=== PATIENT | male | born 1995 | race Caucasian/White ===

== ENCOUNTER 2021-06-12 18:44 | Emergency (ER) | payer OTHER ==
[~2021-06-12] VITALS: Ht 188 cm; Wt 117.9 kg
[2021-06-12 21:15] LABS: URINE BLOOD 1+ (Negative); URINE CLARITY CLEAR; URINE COLOR YELLOW; URINE GLUCOSE-RANDOM* NEGATIVE (Negative); URINE KETONES 2+ (Negative); URINE LEUKOCYTES-REFLEX NEGATIVE (Negative); URINE NITRITE-REFLEX NEGATIVE (Negative); URINE PROTEIN (DIPSTICK) NEGATIVE (Negative); URINE SPECIFIC GRAVITY >= 1.030 (1.005-1.035)
[2021-06-12 21:19] LABS: ICTOTEST (BILI CONFIRMATORY) Negative (Negative); URINE BILIRUBIN NEGATIVE (Negative)
[2021-06-12 21:29] LABS: AMP/METHAMP Negative (Negative); BARBITURATES Negative (Negative); BENZODIAZEPINES Negative (Negative); COCAINE Negative (Negative); METHADONE Negative (Negative); OPIATES Negative (Negative); PCP Negative (Negative)
[2021-06-12 21:36] LABS: CASTS None Seen /LPF (None Seen); SQUAMOUS 0-3 Few /LPF (0-3); URINE RBC 3-10 Few /HPF (NONE SEEN); URINE WBC-REFLEX 0-5 Rare /HPF (0-5)
[2021-06-12 21:37] LABS: AMORPHOUS URATES Few /LPF (None Seen)
[2021-06-12] MEDS ORDERED: ZOFRAN ODT4 MG PO (22:11)
[2021-06-12 22:15] VITALS: BP 132/70
--- NOTE | 2021-06-13 10:31 | EKG ---
[place] [address] [facility] [place] [address] ELECTROCARDIOGRAM REPORT Name: BALTA,JASON Room #: REG TATUM Florentino#: [id number] Admission: 06/12/21 Attend Phys: Discharge: Date of : [birth year] Report #: [id number] [facility] ED Test Date: 2021-06-12 Test Time: 20:09:13 Pat Name: JASON GIFFORD Department: Room: Gender: Lean Consultant: thalia : 1995 Requested By: Clarisa Granda Order Number: [id number] MD: Praveen Moura Measurements Intervals [place] Rate: 56 P: 44 DC: 148 QRS: 26 QRSD: 96 T: 18 QT: 445 QTc: 430 Interpretive Statements Incomplete analysis due to missing data in precordial lead(s) Sinus rhythm Missing lead(s): V1 No previous ECG available for comparison Electronically Signed On 06-13-2021 10:31:27 POWDER EXPERT by Praveen Moura [email or web address] <ELECTRONICALLY SIGNED> By: Praveen Moura MD, [facility] 06/13/21 1031 08 08 Praveen Moura MD, FACC /EPI
--- NOTE | 2021-06-14 07:50 | EKG ---
[place] [address] [facility] [place] [address] ELECTROCARDIOGRAM REPORT Name: BALTA,JASON Room #: DEP Mishel#: [id number] Admission: 06/12/21 Attend Phys: Discharge: 06/12/21 Date of : [birth year] Report #: [id number] [facility] ED Test Date: 2021-06-12 Test Time: 20:28:11 Pat Name: JASON GIFFORD Department: Room: Gender: Manager Mba: SOPHIA : 1995 Requested By: Clarisa Granda Order Number: [id number] MD: Praveen Moura Measurements Intervals [place] Rate: 50 P: 41 SD: 148 QRS: 32 QRSD: 98 T: 19 QT: 462 QTc: 422 Interpretive Statements Sinus rhythm ST elev, probable normal early repol pattern Compared to ECG 06/12/2021 20:09:13 ST (T wave) deviation now present Electronically Signed On 06-14-2021 7:50:37 CHANNEL SPECIALIST by Praveen Moura [email or web address] <ELECTRONICALLY SIGNED> By: Praveen Moura MD, [facility] 06/14/21749 27 27 Praveen Moura MD, FACC /EPI
== END 2021-06-12 23:17 ==
LOC: ER 18:44
PROVIDERS: Physician Assistant
DX: E86.0 Dehydration (principal); F41.9 Anxiety disorder, unspecified; R42 Dizziness and giddiness; F11.90 Opioid use, unspecified, uncomplicated; J45.909 Unspecified asthma, uncomplicated; F32.9 Major depressive disorder, single episode, unspecified; F17.210 Nicotine dependence, cigarettes, uncomplicated